=== PATIENT | male | born 1965 | race Caucasian/White ===

== ENCOUNTER → 2018-10-31 | Day surgery (SDC) | payer BC ==
[2018-10-30 09:23] VITALS: BMI 29.1
[~2018-10-31] MED LIST: LACTATED RINGERS 1,000 ML IV SCH; LIDOCAINE 1% 20 ML VIAL (10MG/ML) FOR IV START INTRADERMA PRN; PROPOFOL 10 MG/ML 20 ML VIAL IV ONE
[2018-10-31 10:00] VITALS: TEMP 97.3
--- NOTE | 2018-10-31 11:15 | P.PCN ---
Date of Procedure: 10/31/18 Procedure(s) Performed: Procedure: Total colonoscopy. Preoperative diagnosis: Screening for neoplasia. Postoperative diagnosis: Exam within normal limits. Preparation: HalfLytely prep. Sedation: Was provided by anesthesia. Brief clinical history: The patient is a 52 year old male who is scheduled for t his evaluation for screening for neoplasia age being his risk factor. No family history of colon cancer. He has no abdominal complaints, bleeding or anemia. This would be his first colonoscopy. Procedure: With the patient on his left lateral decubitus position and after informed consent and adequate sedation, the perianal area was inspected and it did not show any fissures or fistulas. There were no masses felt on digital rectal examination. The Olympus CFH 190L video colonoscope was then inserted in the rectum in the usual fashion and advanced to the cecum. The mucosa appeared healthy. No polyps or tumors were seen or any obvious diverticular disease or other pathology. I retroflexed the endoscope in the rectum before the endoscope was withdrawn. The patient tolerated the procedure well. Plan: The patient was reassured. He will follow up with you as planned and I recommended repeat exam in 10 years.
[2018-10-31 11:35] VITALS: BP 131/90; PULSE 69; RESP 18
== END ==
LOC: ORWHC2ENDO 09:24
DX: Z12.11 Encounter for screening for malignant neoplasm of colon (principal)
CPT/HCPCS: 45378; J2704

== ENCOUNTER 2022-08-31 15:30 | Emergency (ER) | payer BC ==
[2022-08-31 15:46] VITALS: RESP 18; TEMP 98
--- NOTE | 2022-08-31 16:23 | ED ---
General Adult HPI - General Chief complaint: Neuro Symptoms/Deficit Stated complaint: numbness in face Time Seen by Provider: 08/31/22 16:23 Source: patient, RN notes reviewed Mode of arrival: ambulatory Limitations: no limitations - History of Present Illness Initial comments: Patient is a 58-year-old male presenting with chief complaint of right-sided facial numbness ongoing for the last 3 days. Patient has full motion to the bilateral sides of the face. Patient was seen at an urgent care in [place] for the same complaint, they told him to report to the ER for any persistent symptoms or worsening of symptoms. No nausea, vomiting, dizziness, headache, vision changes, numbness or tingling to other portions of the body, weakness. No chest pain, difficulty breathing, palpitations. No recent injury or trauma. No neck pain. - Related Data Home Medications Medication Instructions Recorded Confirmed No Known Home Medications 10/30/18 10/31/18 Allergies Allergy/AdvReac Type Severity Reaction Status Date / Time Dogs Allergy Dyspnea Uncoded 08/31/22 15:46 Review of Systems ROS Statement: Those systems with pertinent positive or pertinent negative responses have been documented in the HPI. ROS Other: All systems not noted in ROS Statement are negative. Past Medical History Past Medical History: No Reported History History of Any Multi-Drug Resistant Organisms: None Reported Past Surgical History: Tonsillectomy Additional Past Surgical History / Comment(s): COLONOSCOPY Past Anesthesia/Blood Transfusion Reactions: No Reported Reaction Past Psychological History: No Psychological Hx Reported Smoking Status: Light tobacco smoker Past Alcohol Use History: Occasional Past Drug Use History: None Reported - Past Family History Mother Family Medical History: Cancer Father Family Medical History: Cancer General Exam - General Exam Comments Initial Comments: Visual Physical Exam Vital signs reviewed General: Well-appearing, nontoxic, no acute distress. Head: Normocephalic, atraumatic Eyes: PERRLA, EOMI ENT: Airway patent Chest: Nonlabored breathing Skin: No visual rash, normal skin tone Neuro: Alert and oriented 3 Musculoskeletal: No gross abnormalities Limitations: no limitations General appearance: alert, in no apparent distress Head exam: Present: atraumatic, normocephalic, normal inspection Eye exam: Present: normal appearance, PERRL, EOMI. Absent: scleral icterus, conjunctival injection, periorbital swelling Neck exam: Present: normal inspection, full ROM Respiratory exam: Present: normal lung sounds bilaterally. Absent: respiratory distress, wheezes, rales, rhonchi, stridor Cardiovascular Exam: Present: regular rate, normal rhythm, normal heart sounds. Absent: systolic murmur, diastolic murmur, rubs, gallop, clicks Neurological exam: Present: alert, oriented X3, CN II-XII intact Expanded Patient oriented to: Present: person, place, time Speech: Present: fluid speech Cranial nerves: EOM's Intact: Normal, Facial Sensation: Abnormal Right (Patient states that it is diminished but not completely numb, full facial motions noted) Eye Response: (4) open spontaneously Motor Response: (6) obeys commands Verbal Response: (5) oriented Callie Total: 15 Psychiatric exam: Present: normal affect, normal mood Skin exam: Present: warm, dry, intact, normal color. Absent: rash Course Vital Signs 08/31/22 08/31/22 15:43 18:56 Temperature 98.0 F Pulse Rate 85 80 Respiratory 18 18 Rate Blood Pressure 137/80 136/78 O2 Sat by Pulse 97 98 Oximetry EKG Findings - EKG Comments: EKG Findings:: Sinus rhythm ventricular rate 81. [place] interval 146. QRS 116. QT 363. QTC 400. Incomplete right bundle branch block. Normal axis. Medical Decision Making - Medical Decision Making Was pt. sent in by a medical professional or institution (JESSICA Yañez, DINING CAR WAITER/WAITRESS, urgent care, hospital, or assisted...) When possible be specific @ -No Did you speak to anyone other than the patient for history (EMS, parent, family, police, friend...)? What history was obtained from this source @ -No Did you review nursing and triage notes (agree or disagree)? Why? @ -I reviewed and agree with nursing and triage notes Were old charts reviewed (outside hosp., previous admission, EMS record, old EKG, old radiological studies, urgent care reports/EKG's, assisted records)? Report findings @ -No old charts were reviewed Differential Diagnosis (chest pain, altered mental status, abdominal pain women, abdominal pain men, vaginal bleeding, weakness, fever, dyspnea, syncope, headache, dizziness, GI bleed, back pain, seizure, CVA, palpatations, mental health, musculoskeletal)? @ -Differential CVA Steward's palsy, Ischemic stroke, hemorrhagic stroke, brain tumor, atypical migraine, Wernicke's encephalopathy, seizure, multiple sclerosis, meningitis, encephalitis, hypoglycemia, Guillain-Wright, electrolytes disturbance, myasthenia gravis.... This is not meant to be an all-inclusive list EKG interpreted by me (3pts min.). @ -As above X-rays interpreted by me (1pt min.). @ -None done CT interpreted by me (1pt min.). @ -CT shows no acute intracranial process U/S interpreted by me (1pt. min.). @ -None done What testing was considered but not performed or refused? (CT, X-rays, U/S, labs)? Why? @ -None What meds were considered but not given or refused? Why? @ -None Did you discuss the management of the patient with other professionals (professionals i.e. , PA, DINING CAR WAITER/WAITRESS, lab, RT, psych nurse, social sciences instructor, winch stripper, teacher, licensed loan officer, major case detective)? Give summary @ -No Was smoking cessation discussed for >3mins.? @ -No Was critical care preformed (if so, how long)? @ -No Were there social determinants of health that impacted care today? How? (Homelessness, low income, unemployed, alcoholism, drug addiction, tra nsportation, low edu. Level, literacy, decrease access to med. care, fpc, rehab)? @ -No Was there de-escalation of care discussed even if they declined (Discuss DNR or withdrawal of care, Hospice)? DNR status @ -No What co-morbidities impacted this encounter? (DM, HTN, Smoking, COPD, CAD, Cancer, CVA, ARF, Chemo, Hep., AIDS, mental health diagnosis, sleep apnea, morbid obesity)? @ -None Was patient admitted / discharged? Hospital course, mention meds given and route, prescriptions, significant lab abnormalities, going to OR and other pertinent info. @ -Patient is a 56-year-old male presenting with chief complaint of 3 days of right-sided facial numbness. Patient has full facial movement. On physical examination patient states that he is diminished sensation to the right side of the face, but not totally absent. Remainder of physical examination is un remarkable. CT shows no acute process. Lab work is essentially unremarkable. EKG shows no acute process. Patient is educated on these findings. I educated patient on the possibility of Steward's palsy. I encouraged him to follow up with his PCP. Follow-up with PCP. Report back to ER with any new or worsening symptoms. Discussed return parameters and answered all questions. Patient conveyed verbal understanding and agreed to the plan. I discussed this case in detail with my attending Dr. Barnes Undiagnosed new problem with uncertain prognosis? @ -No Drug Therapy requiring intensive monitoring for toxicity (Heparin, Nitro, Insulin, Cardizem)? @ -No Were any procedures done? @ -No Diagnosis/symptom? @ -Facial numbness Acute, or Chronic, or Acute on Chronic? @ -Acute Uncomplicated (without systemic symptoms) or Complicated (systemic symptoms)? @ -Uncomplicated Side effects of treatment? @ -No Exacerbation, Progression, or Severe Exacerbation? @ -No Poses a threat to life or bodily function? How? (Chest pain, [place], [place], pneumonia, PE, COPD, DKA, ARF, appy, cholecystitis, CVA, Diverticulitis, Homicidal, Suicidal, threat to staff... and all critical care pts) @ -No - Lab Data Result diagrams: 08/31/22 17:35 08/31/22 17:35 Lab Results 08/31/22 08/31/22 08/31/22 Range/Units 17:35 17:35 17:35 WBC 5.0 (3.8-10.6) k/uL RBC 4.85 (4.30-5.90) m/uL Hgb 14.6 (13.0-17.5) gm/dL Hct 42.2 (39.0-53.0) % MCV 87.0 (80.0-100.0) fL MCH 30.1 (25.0-35.0) pg MCHC 34.6 (31.0-37.0) g/dL RDW 13.1 (11.5-15.5) % Plt Count 222 (150-450) k/uL MPV 7.1 Neutrophils % 52 % Lymphocytes % 31 % Monocytes % 7 % Eosinophils % 6 % Basophils % 1 % Neutrophils # 2.6 (1.3-7.7) k/uL Lymphocytes # 1.5 (1.0-4.8) k/uL Monocytes # 0.4 (0-1.0) k/uL Eosinophils # 0.3 (0-0.7) k/uL Basophils # 0.1 (0-0.2) k/uL PT 10.3 (9.0-12.0) sec INR 1.0 (<1.2) APTT 24.2 (22.0-30.0) sec Sodium 139 (137-145) mmol/L Potassium 4.3 (3.5-5.1) mmol/L Chloride 106 (98-107) mmol/L Carbon Dioxide 24 (22-30) mmol/L Anion Gap 9 mmol/L BUN 21 H (9-20) mg/dL Creatinine 0.83 (0.66-1.25) mg/dL Est GFR (CKD-EPI)AfAm >90 (>60 ml/min/1.73 sqM) Est GFR (CKD-EPI)NonAf >90 (>60 ml/min/1.73 sqM) Glucose 97 (74-99) mg/dL Calcium 9.0 (8.4-10.2) mg/dL Total Bilirubin 0.4 (0.2-1.3) mg/dL AST 24 (17-59) U/L ALT 32 (4-49) U/L Alkaline Phosphatase 55 (38-126) U/L Creatine Kinase 99 (55-170) U/L Troponin I (0.000-0.034) ng/mL Total Protein 7.3 (6.3-8.2) g/dL Albumin 4.1 (3.5-5.0) g/dL 08/31/22 Range/Units 17:35 WBC (3.8-10.6) k/uL RBC (4.30-5.90) m/uL Hgb (13.0-17.5) gm/dL Hct (39.0-53.0) % MCV (80.0-100.0) fL MCH (25.0-35.0) pg MCHC (31.0-37.0) g/dL RDW (11.5-15.5) % Plt Count (150-450) k/uL MPV Neutrophils % % Lymphocytes % % Monocytes % % Eosinophils % % Basophils % % Neutrophils # (1.3-7.7) k/uL Lymphocytes # (1.0-4.8) k/uL Monocytes # (0-1.0) k/uL Eosinophils # (0-0.7) k/uL Basophils # (0-0.2) k/uL PT (9.0-12.0) sec INR (<1.2) APTT (22.0-30.0) sec Sodium (137-145) mmol/L Potassium (3.5-5.1) mmol/L Chloride (98-107) mmol/L Carbon Dioxide (22-30) mmol/L Anion Gap mmol/L BUN (9-20) mg/dL Creatinine (0.66-1.25) mg/dL Est GFR (CKD-EPI)AfAm (>60 ml/min/1.73 sqM) Est GFR (CKD-EPI)NonAf (>60 ml/min/1.73 sqM) Glucose (74-99) mg/dL Calcium (8.4-10.2) mg/dL Total Bilirubin (0.2-1.3) mg/dL AST (17-59) U/L ALT (4-49) U/L Alkaline Phosphatase (38-126) U/L Creatine Kinase (55-170) U/L Troponin I <0.012 (0.000-0.034) ng/mL Total Protein (6.3-8.2) g/dL Albumin (3.5-5.0) g/dL Disposition Clinical Impression: Facial numbness Disposition: HOME SELF-CARE Condition: Good Instructions (If sedation given, give patient instructions): Steward Palsy (ED), Paresthesia (ED) Additional Instructions: Follow-up with PCP. Report back to ER with any new or worsening symptoms. Is patient prescribed a controlled substance at d/c from ED?: No Referrals: [facility],Clinic [REFERRING] - 1-2 days Time of Disposition: 19:10
--- NOTE | 2022-08-31 17:08 | CT ---
EXAMINATION TYPE: CT brain wo con DATE OF EXAM: 08/31/2022 HISTORY: Right sided facial numbness. CT DLP: 1153.4 mGycm. Automated Exposure Control for Dose Reduction was Utilized. TECHNIQUE: CT scan of the head is performed without contrast. COMPARISON: None. FINDINGS: There is no acute intracranial hemorrhage or midline shift identified. Ventricles and sul ci within normal limits in size for patient's age. Thompson-white matter differentiation is maintained. Nasal septum deviated to left of midline. The globes are intact and the visualized sinuses are clear. IMPRESSION: No acute intracranial hemorrhage or midline shift. Unremarkable study.
[2022-08-31 17:57] LABS: Basophils # (A) 0.1 k/uL (0-0.2); Basophils % (A) 1 %; Eosinophils # (A) 0.3 k/uL (0-0.7); Eosinophils % (A) 6 %; HCT 42.2 % (39.0-53.0); HGB 14.6 gm/dL (13.0-17.5); Lymphocytes # (A) 1.5 k/uL (1.0-4.8); Lymphocytes % (A) 31 %; MCH 30.1 pg (25.0-35.0); MCHC 34.6 g/dL (31.0-37.0); Mean Platelet Volume 7.1; Monocytes # (A) 0.4 k/uL (0-1.0); Monocytes % (A) 7 %; Neutrophils # (A) 2.6 k/uL (1.3-7.7); Neutrophils % (A) 52 %; Platelet Count 222 k/uL (150-450); RBC 4.85 m/uL (4.30-5.90); RDW 13.1 % (11.5-15.5)
[2022-08-31 18:09] LABS: Partial Thromboplastin Time 24.2 sec (22.0-30.0); Prothrombin Time 10.3 sec (9.0-12.0)
[2022-08-31 18:26] LABS: ALT 32 U/L (4-49); AST 24 U/L (17-59); African American GFR (CKD) >90 (>60 ml/min/1.73 sqM); Albumin 4.1 g/dL (3.5-5.0); Alkaline Phosphatase 55 U/L (38-126); Anion Gap 9 mmol/L; Blood Urea Nitrogen 21 mg/dL (9-20); Carbon Dioxide 24 mmol/L (22-30); Chloride 106 mmol/L (98-107); Creatine Kinase 99 U/L (55-170); Glucose 97 mg/dL (74-99); Non-African American GFR(CKD) >90 (>60 ml/min/1.73 sqM); Potassium 4.3 mmol/L (3.5-5.1); Sodium 139 mmol/L (137-145); Total Bilirubin 0.4 mg/dL (0.2-1.3); Total Protein 7.3 g/dL (6.3-8.2)
[2022-08-31 18:58] VITALS: BP 136/78; PULSE 80
== END 2022-08-31 19:37 | disposition home or self-care (01) ==
LOC: EC 15:30
DX: R20.0 Anesthesia of skin (principal); F17.200 Nicotine dependence, unspecified, uncomplicated; Z91.09 Other allergy status, other than to drugs and biological substances
CPT/HCPCS: 36415; 70450; 80053; 82550; 84484; 85025; 85610; 85730; 93005; 99284

== ENCOUNTER → 2022-09-26 | Outpatient (CLI) | payer BC ==
[2022-09-26 18:24] LABS: Appearance,CSF Clear; CSF Tube Number 4; Nucleated Cells, CSF 1 u/L (0-5); Red Blood Cell,CSF 0 u/L (0-10)
[2022-09-26 18:51] LABS: Total Protein,CSF 59 mg/dL (12-60)
[2022-09-27 12:23] LABS: IgG - CSF 3.7 mg/dL (0.0 - 3.4); IgG Synthesis Rate 0.53 mg/day (0.00 - 3.00); IgG/Albumin Index (CSF) 0.62 (0.00 - 0.77)
== END | disposition home or self-care (01) ==
LOC: LABWHC1 08:18
PROVIDERS: ATTEND Psychiatry & Neurology Neurology
DX: R20.8 Other disturbances of skin sensation (principal); R90.0 Intracranial space-occupying lesion found on diagnostic imaging of central nervous system
CPT/HCPCS: 36415; 82040; 82042; 82784; 83916; 84157; 87529; 89050

== ENCOUNTER 2023-09-22 01:21 | Observation (INO) | payer BC ==
[2023-09-22] MEDS: MECLIZINE 12.5 MG TAB PO STA (01:48)
[2023-09-22] MEDS: ONDANSETRON 4 MG/2 ML VIAL IVP STA (01:48)
[2023-09-22] MEDS: SODIUM CHLORIDE 0.9% 1,000 ML IV STA (01:50)
[2023-09-22 02:01] LABS: Basophils % (A) 1 %; Eosinophils # (A) 0.2 k/uL (0-0.7); Eosinophils % (A) 5 %; HCT 46.1 % (39.0-53.0); HGB 15.2 gm/dL (13.0-17.5); Lymphocytes # (A) 0.4 k/uL (1.0-4.8); Lymphocytes % (A) 10 %; MCH 29.2 pg (25.0-35.0); MCHC 32.9 g/dL (31.0-37.0); MCV 88.7 fL (80.0-100.0); Mean Platelet Volume 7.3; Monocytes # (A) 0.4 k/uL (0-1.0); Monocytes % (A) 10 %; Neutrophils % (A) 72 %; Platelet Count 244 k/uL (150-450); RDW 13.3 % (11.5-15.5); WBC 4.2 k/uL (3.8-10.6)
--- NOTE | 2023-09-22 02:21 | ED ---
Dizziness HPI - General Chief Complaint: Dizziness Stated Complaint: Dizziness, vomiting, sweating Time Seen by Provider: 09/22/23 01:30 Source: patient Mode of arrival: wheelchair Limitations: no limitations - History of Present Illness Initial Comments: 57-year-old male with history of MS presenting with chief complaint of dizziness. Patient had sudden onset dizziness tonight. He states that he feels like the room is spinning around him. He admits to sweating nausea and vomiting as well. No fevers. No URI-like symptoms. No chest pain or difficulty breathing. No abdominal pain. No recent injury or trauma. No lower extremity swelling - Related Data Home Medications Medication Instructions Recorded Confirmed Gabapentin 300 mg PO TID 09/22/23 09/22/23 Losartan [Cozaar] 50 mg PO DAILY@1800 09/22/23 09/22/23 Ozanimod Hydrochloride [Zeposia] 0.92 mg PO DAILY@0700 09/22/23 09/22/23 tiZANidine [Zanaflex] 4 mg PO BID PRN 09/22/23 09/22/23 Previous Rx's Medication Instructions Recorded Meclizine [Antivert] 25 mg PO TID PRN #60 tab 09/24/23 Allergies Allergy/AdvReac Type Severity Reaction Status Date / Time dog dander Allergy Dyspnea Verified 09/22/23 13:03 Dogs Allergy Dyspnea Uncoded 09/22/23 13:03 Review of Systems ROS Statement: Those systems with pertinent positive or pertinent negative responses have been documented in the HPI. ROS Other: All systems not noted in ROS Statement are negative. Past Medical History Past Medical History: No Reported History Additional Past Medical History / Comment(s): MS History of Any Multi-Drug Resistant Organisms: None Reported Past Surgical History: Tonsillectomy Additional Past Surgical History / Comment(s): COLONOSCOPY Past Anesthesia/Blood Transfusion Reactions: No Reported Reaction Past Psychological History: No Psychological Hx Reported Smoking Status: Former smoker Past Alcohol Use History: Occasional Past Drug Use History: None Reported - Past Family History Mother Family Medical History: Cancer Father Family Medical History: Cancer General Exam Limitations: no limitations General appearance: alert, in no apparent distress Head exam: Present: atraumatic, normocephalic Eye exam: Present: normal appearance, PERRL, EOMI Pupils: Present: normal accommodation Neck exam: Present: normal inspection. Absent: meningismus Respiratory exam: Present: normal lung sounds bilaterally. Absent: respiratory distress, wheezes, rales, rhonchi, stridor Cardiovascular Exam: Present: regular rate, normal rhythm, normal heart sounds. Absent: systolic murmur, diastolic murmur, rubs, gallop, clicks Extremities exam: Present: normal inspection Neurological exam: Present: alert, oriented X3 Expanded Patient oriented to: Present: person, place, time Speech: Present: fluid speech Motor strength exam: RUE: 5, LUE: 5, RLE: 5, LLE: 5 Eye Response: (4) open spontaneously Motor Response: (6) obeys commands Verbal Response: (5) oriented Callie Total: 15 Psychiatric exam: Present: normal affect, normal mood Skin exam: Present: diaphoretic Course Vital Signs 09/22/23 09/22/23 09/22/23 01:24 02:00 03:00 Temperature 97.4 F L Pulse Rate 79 68 91 Respiratory 18 16 18 Rate Blood Pressure 166/87 145/98 155/91 O2 Sat by Pulse 98 96 97 Oximetry 09/22/23 09/22/23 09/22/23 05:00 06:00 07:00 Temperature Pulse Rate 71 69 70 Respiratory 16 17 18 Rate Blood Pressure 135/73 133/95 137/83 O2 Sat by Pulse 97 96 96 Oximetry Medical Decision Making - Medical Decision Making On reevaluation the patient reported continued vertigo that had not improved since arrival. He will be admitted for further evaluation. Was pt. sent in by a medical professional or institution (, PA, APPLICATIONS SUPPORT ENGINEER, urgent c are, hospital, or intermediate...) When possible be specific @ -No Did you speak to anyone other than the patient for history (EMS, parent, family, police, friend...)? What history was obtained from this source @ -No Did you review nursing and triage notes (agree or disagree)? Why? @ -I reviewed and agree with nursing and triage notes Were old charts reviewed (outside hosp., previous admission, EMS record, old EKG, old radiological studies, urgent care reports/EKG's, intermediate records)? Report findings @ -No old charts were reviewed Differential Diagnosis (chest pain, altered mental status, abdominal pain women, abdominal pain men, vaginal bleeding, weakness, fever, dyspnea, syncope, headache, dizziness, GI bleed, back pain, seizure, CVA, palpatations, mental health, musculoskeletal)? @ -MDM Differential Dizziness: Benign paroxysmal positional Vertigo, Menieres disease, otitis media, acoustic neuroma, vertebrobasilar insufficiency, cerebellar stroke, encephalitis, hypovolemic, arrhythmia, coronary artery syndrome, anemia this is not meant to be an all-inclusive list EKG interpreted by me (3pts min.). @ -EKG shows sinus rhythm ventricular rate 72. [place] interval 155. QRS 117. QT 394. QTc 418. X-rays interpreted by me (1pt min.). @ -None done CT interpreted by me (1pt min.). @ -CT shows no acute abnormality U/S interpreted by me (1pt. min.). @ -None done What testing was considered but not performed or refused? (CT, X-rays, U/S, labs)? Why? @ -None What meds were considered but not given or refused? Why? @ -None Did you discuss the management of the patient with other professionals (professionals i.e. , PA, APPLICATIONS SUPPORT ENGINEER, lab, RT, psych nurse, addiction social worker, health care attorney, teacher, probation and parole officer, nurse case management)? Give summary @ -My attending spoke with the [facility] provider on-call who accepted admission Was smoking cessation discussed for >3mins.? @ -No Was critical care preformed (if so, how long)? @ -No Were there social determinants of health that impacted care today? How? (Homelessness, low income, unemployed, alcoholism, drug addiction, transportation, low edu. Level, literacy, decrease access to med. care, correction, rehab)? @ -No Was there de-escalation of care discussed even if they declined (Discuss DNR or withdrawal of care, Hospice)? DNR status @ -No What co-morbidities impacted this encounter? (DM, HTN, Smoking, COPD, CAD, Cancer, CVA, ARF, Chemo, Hep., AIDS, mental health diagnosis, sleep apnea, morbid obesity)? @ -None Was patient admitted / discharged? Hospital course, mention meds given and route, prescriptions, significant lab abnormalities, going to OR and other pertinent info. @ -57-year-old male presenting with chief complaint of dizziness. No focal neurological deficits. Lab studies require no action. Negative brain CT. EKG shows sinus rhythm. On reassessment after meclizine Zofran Benadryl and Reglan the patient is still experiencing dizziness. He will be admitted for vertigo. Scopolamine patch is ordered. Patient is agreeable with this plan. I discussed this case with my attending Dr. Bustos Undiagnosed new problem with uncertain prognosis? @ -No Drug Therapy requiring intensive monitoring for toxicity (Heparin, Nitro, Insulin, Cardizem)? @ -No Were any procedures done? @ -No Diagnosis/symptom? @ -Vertigo Acute, or Chronic, or Acute on Chronic? @ -Acute Uncomplicated (without systemic symptoms) or Complicated (systemic symptoms)? @ -Complicated Side effects of treatment? @ -No Exacerbation, Progression, or Severe Exacerbation? @ -No Poses a threat to life or bodily function? How? (Chest pain, [place], [place], pneumonia, PE, COPD, DKA, ARF, appy, cholecystitis, CVA, Diverticulitis, Homicidal, S uicidal, threat to staff... and all critical care pts) @ -Yes - Lab Data Result diagrams: 09/24/23 06:24 09/24/23 06:24 Lab Results 09/22/23 09/22/23 09/22/23 Range/Units 01:04 01:45 01:45 WBC 4.2 (3.8-10.6) k/uL RBC 5.20 (4.30-5.90) m/uL Hgb 15.2 (13.0-17.5) gm/dL Hct 46.1 (39.0-53.0) % MCV 88.7 (80.0-100.0) fL MCH 29.2 (25.0-35.0) pg MCHC 32.9 (31.0-37.0) g/dL RDW 13.3 (11.5-15.5) % Plt Count 244 (150-450) k/uL MPV 7.3 Neutrophils % 72 % Lymphocytes % 10 % Monocytes % 10 % Eosinophils % 5 % Basophils % 1 % Neutrophils # 3.0 (1.3-7.7) k/uL Lymphocytes # 0.4 L (1.0-4.8) k/uL Monocytes # 0.4 (0-1.0) k/uL Eosinophils # 0.2 (0-0.7) k/uL Basophils # 0.0 (0-0.2) k/uL Sodium 138 (137-145) mmol/L Potassium 4.3 (3.5-5.1) mmol/L Chloride 108 H (98-107) mmol/L Carbon Dioxide 23 (22-30) mmol/L Anion Gap 7 mmol/L BUN 22 H (9-20) mg/dL Creatinine 0.84 (0.66-1.25) mg/dL Est GFR (CKD-EPI)AfAm >90 (>60 ml/min/1.73 sqM) Est GFR (CKD-EPI)NonAf >90 (>60 ml/min/1.73 sqM) Glucose 132 H (74-99) mg/dL Plasma Lactic Acid Aakash 1.0 (0.7-2.0) mmol/L Calcium 8.8 (8.4-10.2) mg/dL Total Bilirubin 0.5 (0.2-1.3) mg/dL AST 26 (17-59) U/L ALT 27 (4-49) U/L Alkaline Phosphatase 61 (38-126) U/L Troponin I (0.000-0.034) ng/mL Total Protein 6.6 (6.3-8.2) g/dL Albumin 3.8 (3.5-5.0) g/dL 09/22/23 Range/Units 01:45 WBC (3.8-10.6) k/uL RBC (4.30-5.90) m/uL Hgb (13.0-17.5) gm/dL Hct (39.0-53.0) % MCV (80.0-100.0) fL MCH (25.0-35.0) pg MCHC (31.0-37.0) g/dL RDW (11.5-15.5) % Plt Count (150-450) k/uL MPV Neutrophils % % Lymphocytes % % Monocytes % % Eosinophils % % Basophils % % Neutrophils # (1.3-7.7) k/uL Lymphocytes # (1.0-4.8) k/uL Monocytes # (0-1.0) k/uL Eosinophils # (0-0.7) k/uL Basophils # (0-0.2) k/uL Sodium (137-145) mmol/L Potassium (3.5-5.1) mmol/L Chloride (98-107) mmol/L Carbon Dioxide (22-30) mmol/L Anion Gap mmol/L BUN (9-20) mg/dL Creatinine (0.66-1.25) mg/dL Est GFR (CKD-EPI)AfAm (>60 ml/min/1.73 sqM) Est GFR (CKD-EPI)NonAf (>60 ml/min/1.73 sqM) Glucose (74-99) mg/dL Plasma Lactic Acid Aakash (0.7-2.0) mmol/L Calcium (8.4-10.2) mg/dL Total Bilirubin (0.2-1.3) mg/dL AST (17-59) U/L ALT (4-49) U/L Alkaline Phosphatase (38-126) U/L Troponin I <0.012 (0.000-0.034) ng/mL Total Protein (6.3-8.2) g/dL Albumin (3.5-5.0) g/dL Disposition Clinical Impression: Vertigo Disposition: ADMITTED IP TO THIS HOSP Condition: Fair Time of Disposition: 04:47
[2023-09-22 02:48] LABS: ALT 27 U/L (4-49); AST 26 U/L (17-59); African American GFR (CKD) >90 (>60 ml/min/1.73 sqM); Albumin 3.8 g/dL (3.5-5.0); Alkaline Phosphatase 61 U/L (38-126); Anion Gap 7 mmol/L; Blood Urea Nitrogen 22 mg/dL (9-20); Calcium 8.8 mg/dL (8.4-10.2); Carbon Dioxide 23 mmol/L (22-30); Chloride 108 mmol/L (98-107); Glucose 132 mg/dL (74-99); Non-African American GFR(CKD) >90 (>60 ml/min/1.73 sqM); Potassium 4.3 mmol/L (3.5-5.1); Sodium 138 mmol/L (137-145); Total Bilirubin 0.5 mg/dL (0.2-1.3); Total Protein 6.6 g/dL (6.3-8.2)
--- NOTE | 2023-09-22 03:39 | CT ---
EXAM: CT Head Without Intravenous Contrast CLINICAL HISTORY: Dizziness TECHNIQUE: Axial computed tomography images of the head/brain without intravenous contrast. CTDI is 49.2 mGy and DLP is 1125.4 mGy-cm. This CT exam was performed using one or more of the following dose reduction techniques: automated exposure control, adjustment of the mA and/or kV according to patient size, and/or use of iterative reconstruction technique. COMPARISON: 08/31/2022. FINDINGS: Brain: No acute stroke. No hemorrhage. No abnormal extra-axial fluid collection. No significant white matter disease. Ventricles: No hydrocephalus. No midline shift. Bones/joints: Unremarkable. No acute fracture. Soft tissues: Unremarkable. Sinuses: Unremarkable as visualized. No acute sinusitis. IMPRESSION: No acute abnormality.
[2023-09-22] MEDS: METOCLOPRAMIDE 5 MG/ML 2 ML VIAL IVP STA (04:24)
[2023-09-22] MEDS: diphenhydrAMINE 50 MG/ML 1 ML VIAL IVP STA (04:27)
[2023-09-22] MEDS ORDERED: NALOXONE 0.4 MG/ML 1 ML VIAL IV PRN (04:47)
[2023-09-22] MEDS ORDERED: ONDANSETRON 4 MG/2 ML VIAL IVP PRN (04:47)
[2023-09-22] MEDS: SCOPOLAMINE 1 MG/72 HR PATCH TRANSDERM STA (05:51)
[2023-09-22] MEDS: MECLIZINE 25 MG TAB PO PRN (12:39)
[2023-09-22] MEDS ORDERED: tiZANidine 4 MG TAB PO PRN (13:17)
[2023-09-22] MEDS: MECLIZINE 25 MG TAB PO SCH (14:26)
[2023-09-22] MEDS: GABAPENTIN 300 MG CAP PO SCH (16:15)
--- NOTE | 2023-09-22 16:31 | P.CNNES ---
History of Present Illness Consult date: 09/22/23 Reason for Consult: Vertigo History of Present Illness: The patient is a 57-year-old male who was seen in neurologic consultation on September 22, 2023, in collaboration with Kimberly Arguelles, via teleneurology. The patient reports that he had sudden onset of a dizzy sensation. He describes his dizziness as the room spinning. He reports associated nausea and vomiting. He also reports severe diaphoresis. Patient denies changes in hearing or tinnitus. He denies recent viral illness. The patient does report a history of similar symptoms occurring in January 2023. He believes those symptoms lasted only for about 48 hours. Workup in the emergency department included a CT scan of the brain. There is no reported evidence of acute hemorrhage or infarct. The patient does have a history of multiple sclerosis which was diagnosed 1 to 2 years ago. He does see a neurologist regularly. The patient does feel as if there is some improvement in the spinning sensation, since he was brought up to his room. Past Medical History Past Medical History: No Reported History Additional Past Medical History / Comment(s): MS History of Any Multi-Drug Resistant Organisms: None Reported Past Surgical History: Tonsillectomy Additional Past Surgical History / Comment(s): COLONOSCOPY Past Anesthesia/Blood Transfusion Reactions: No Reported Reaction Past Psychological History: No Psychological Hx Reported Smoking Status: Former smoker Past Alcohol Use History: Occasional Past Drug Use History: None Reported - Past Family History Mother Family Medical History: Cancer Father Family Medical History: Cancer Medications and Allergies Home Medications Medication Instructions Recorded Confirmed Type Gabapentin 300 mg PO TID 09/22/23 09/22/23 History Losartan [Cozaar] 50 mg PO DAILY@1800 09/22/23 09/22/23 History Ozanimod Hydrochloride [Zeposia] 0.92 mg PO DAILY@0700 09/22/23 09/22/23 History tiZANidine [Zanaflex] 4 mg PO BID PRN 09/22/23 09/22/23 History Allergies Allergy/AdvReac Type Severity Reaction Status Date / Time dog dander Allergy Dyspnea Verified 09/22/23 13:03 Dogs Allergy Dyspnea Uncoded 09/22/23 13:03 Physical Examination - Vital Signs Vital Signs: Vital Signs Temp Pulse Pulse Resp BP BP Pulse Ox 09/22/23 08:00 97.8 F 78 18 140/84 96 09/22/23 07:00 70 18 137/83 96 09/22/23 06:00 69 17 133/95 96 09/22/23 05:00 71 16 135/73 97 09/22/23 03:00 91 18 155/91 97 09/22/23 02:00 68 16 145/98 96 09/22/23 01:24 97.4 F L 79 18 166/87 98 Intake and Output 09/21/23 09/22/23 09/22/23 22:59 06:59 14:59 Other: Weight 99.79 kg General: Patient is awake and alert. He is in no acute distress. He is well- nourished. HEENT: Head is atraumatic, normocephalic. Fundus not visualized. There is no scleral icterus. Mucous membranes are moist. Neck: Supple without carotid bruits Heart: Regular rate and rhythm without murmur Lungs: Essentially clear to auscultation. Extremities: Without edema Neurological examination Mental status: The patient awake, alert and oriented x 3. Speech is clear. The re is no dysarthria or aphasia. Cranial nerves: Pupils are equal at 3 mm and reactive to light. Visual sarabia are full to confrontation. Extraocular movements are intact. There is mild nystagmus upon repositioning of the eyes from the right to left. Facial sensation is intact. There is no facial asymmetry. Hearing is grossly intact. Uvula and palate are midline. Shoulder shrug is symmetric. Tongue protrudes midline. Motor: Strength is 5/5 in the bilateral upper extremities. Right lower extremity strength 5/5. Left lower extremity strength 4/5. Sensation: Intact to light touch throughout. There is no extinction with double simultaneous stimulation. Deep tendon reflexes: 2+/4+ throughout, with the exception of the left biceps reflex at 3+/4+. Plantar responses are flexor bilaterally. Coordination: [id number], haeh-ik-vphd and rapid alternating movements are intact. Gait: Not assessed Results - Laboratory Findings CBC and BMP: 09/22/23 01:45 09/22/23 01:04 Abnormal Lab Findings: Abnormal Labs 09/22/23 09/22/23 01:04 01:45 Lymphocytes # 0.4 L Chloride 108 H BUN 22 H Glucose 132 H Assessment and Plan Assessment: 1. Recurrent benign paroxysmal positional vertigo, unlikely exacerbation of multiple sclerosis 2. History of multiple sclerosis Plan: 1. Agree with meclizine or scopolamine patch 2. Physical therapy consultation regarding Kristine maneuver Time with Patient: Greater than 30 (58 minutes were spent caring for this patient today including, obtaining history, examining the patient, reviewing imaging, chart documentation, labs, placing orders and creating this note)
[2023-09-22] MEDS: LOSARTAN 50 MG TAB PO SCH (17:54)
[2023-09-22] MEDS ORDERED: [UNRECOGNIZED DRUG - OTHER] PO SCH (18:15)
--- NOTE | 2023-09-22 23:39 | HP ---
HISTORY AND PHYSICAL CHIEF COMPLAINT: Dizziness, vomiting, and sweating. HISTORY OF PRESENT ILLNESS: This is a 57-year-old gentleman with past history of MS, was admitted with complaints of dizziness. Neurology evaluated the patient . There is no history of any fever or rigors, no history of headache or loss of consciousness. PAST MEDICAL HISTORY: History of MS tonsillectomy. Rest of the history and chart is also reviewed. HOME MEDICATIONS: None. ALLERGIES: Dogs. FAMILY HISTORY: History of cancer in the family. SOCIAL HISTORY: Previous history of smoking. REVIEW OF SYSTEMS: A 14-point review is negative except . PHYSICAL EXAMINATION: VITAL SIGNS: Pulse is 99, blood pressure 130/90, respiration 16. CHEST: Clear to auscultation. ABDOMEN: Soft. NERVOUS SYSTEM: Minimal nystagmus. LEGS: No edema, no swelling. NEUROLOGIC: No focal deficits. SKIN: No ulcer, rash, bleeding. LABORATORY DATA: Reviewed. ASSESSMENT: 1. Vertigo, possible benign positional vertigo. 2. History of MS. 3. History of colonoscopy. RECOMMENDATIONS AND DISCUSSION: This 57-year-old gentleman presented with multiple medical issues, we will monitor the patient closely. Continue the current management, continue symptomatic treatment. Otherwise, I would recommend Antivert and closely monitor. Repeat labs. Neurology consultation. Guarded prognosis. Further recommendations to follow, see orders for details. MMODL / IJN: [id number] / MTDD
[2023-09-23] MEDS: [UNRECOGNIZED DRUG - OTHER] PO SCH (05:55)
[2023-09-23] MEDS ORDERED: [UNRECOGNIZED DRUG - OTHER] PO SCH (07:00)
[2023-09-23 08:22] LABS: Basophils % (A) 1 %; Eosinophils # (A) 0.2 k/uL (0-0.7); Eosinophils % (A) 4 %; HCT 45.7 % (39.0-53.0); HGB 15.6 gm/dL (13.0-17.5); Lymphocytes # (A) 0.3 k/uL (1.0-4.8); Lymphocytes % (A) 8 %; MCH 30.2 pg (25.0-35.0); MCHC 34.1 g/dL (31.0-37.0); MCV 88.8 fL (80.0-100.0); Mean Platelet Volume 7.7; Monocytes # (A) 0.4 k/uL (0-1.0); Monocytes % (A) 10 %; Neutrophils # (A) 2.9 k/uL (1.3-7.7); Neutrophils % (A) 76 %; Platelet Count 256 k/uL (150-450); RBC 5.14 m/uL (4.30-5.90); RDW 13.6 % (11.5-15.5); WBC 3.9 k/uL (3.8-10.6)
[2023-09-23 08:51] LABS: African American GFR (CKD) >90 (>60 ml/min/1.73 sqM); Anion Gap 8 mmol/L; Blood Urea Nitrogen 21 mg/dL (9-20); Calcium 8.6 mg/dL (8.4-10.2); Carbon Dioxide 22 mmol/L (22-30); Chloride 108 mmol/L (98-107); Glucose 110 mg/dL (74-99); Non-African American GFR(CKD) >90 (>60 ml/min/1.73 sqM); Potassium 4.3 mmol/L (3.5-5.1); Sodium 138 mmol/L (137-145)
--- NOTE | 2023-09-23 13:04 | P.PN ---
Subjective Progress Note Date: 09/23/23 The patient is a 57-year-old male who is seen in neurologic follow-up on September 23, 2023, in collaboration with Kimberly Arguelles, via teleneurology The patient reports continuing to feel dizzy. He notices with head movements, the spinning continues. He is able to stand however reports that he must immed iately hold onto something. Unfortunately, he was not seen by physical therapy for Kristine maneuver. It appears the primary team ordered an MRI of the brain. This will be done tomorrow. Objective - Vital Signs Vital signs: Vital Signs Temp 97.8 F 09/23/23 07:00 Pulse 67 09/23/23 08:00 Resp 16 09/23/23 08:00 BP 116/72 09/23/23 07:00 Pulse Ox 94 L 09/23/23 07:00 FiO2 Intake & Output 09/22/23 09/23/23 09/23/23 18:59 06:59 18:59 Weight 99.79 kg Other: # Voids 2 1 - Exam General: Patient is seated in the bed. He is well-nourished. He is in no acute distress. HEENT: Head is atraumatic, normocephalic. Fundus not visualized. There is no scleral icterus. Mucous membranes are moist. Neurological examination Mental status: The patient awake, alert and oriented x 3. Cranial nerves: 2-12 grossly intact Coordination: [id number]-tm-mwfg and rapid alternating movements are intact. There is no ataxia or dysmetria. - Labs CBC & Chem 7: 09/23/23 06:58 09/23/23 06:58 Labs: Abnormal Lab Results - Last 24 Hours (Table) 09/23/23 09/23/23 Range/Units 06:58 06:58 Lymphocytes # 0.3 L (1.0-4.8) k/uL Chloride 108 H (98-107) mmol/L BUN 21 H (9-20) mg/dL Glucose 110 H (74-99) mg/dL Assessment and Plan Assessment: 1. Recurrent benign paroxysmal positional vertigo, unlikely exacerbation of multiple sclerosis, unlikely cerebellar infarct 2. History of multiple sclerosis Plan: 1. Agree with meclizine or scopolamine patch 2. Physical therapy consultation regarding Kristine maneuver 3. Continue meclizine as ordered 4. MRI of the brain has been ordered to rule out cerebellar stroke 5. Dr. Arthur will assume neurologic coverage of this patient has been September 24, 2023 Time with Patient: Less than 30
--- NOTE | 2023-09-23 14:33 | PN ---
PROGRESS NOTE DATE OF SERVICE: 09/23/2023 SUBJECTIVE: This 57-year-old gentleman was admitted with vertigo, has nystagmus with preference to the right gaze, rotary nystagmus. The patient has history of MS also. I recommend MRI to rule out the possibility of MS lesions. No chest pain, no palpitation. OBJECTIVE: VITAL SIGNS: Pulse 67, blood pressure 116/70, respirations 16. CHEST: Clear to auscultation. ABDOMEN: Soft. NERVOUS SYSTEM: As mentioned. LABORATORY DATA: Noted. ASSESSMENT: 1. Vertigo for evaluation, still persistent. 2. Rule out MS acute exacerbation. 3. History of MS. 4. History of colonoscopy. RECOMMENDATIONS: Recommended to continue current management, continue symptomatic treatment. MRI, closely follow with Neurology. Repeat labs. Guarded prognosis. Further recommendations to follow. MMODL / IJN: [id number] /
[2023-09-24] MEDS: [UNRECOGNIZED DRUG - OTHER] PO SCH (06:36)
[2023-09-24 08:21] VITALS: RESP 16
[2023-09-24 11:14] LABS: Basophils # (A) 0.02 X 10*3/uL (0.00-0.10); Basophils % (A) 0.5 %; Eosinophils # (A) 0.17 X 10*3/uL (0.04-0.35); Eosinophils % (A) 4.5 %; HCT 43.8 % (39.6-50.0); HGB 14.6 g/dL (13.0-17.0); Lymphocytes # (A) 0.38 X 10*3/uL (0.90-5.00); Lymphocytes % (A) 10.1 %; MCH 29.2 pg (27.0-32.0); MCHC 33.3 g/dL (32.0-37.0); MCV 87.6 FL (80.0-97.0); Mean Platelet Volume 9.7 FL (9.5-12.2); NRBC Per 100 WBC 0 X 10*3/uL (0.00-0.01); Neutrophils # (A) 2.54 X 10*3/uL (1.80-7.70); Neutrophils % (A) 67.6 %; Platelet Count 253 X 10*3/uL (140-440); RDW 13.2 % (11.5-14.5); WBC 3.76 X 10*3/uL (4.50-10.00)
[2023-09-24 11:28] LABS: Blood Urea Nitrogen 15.7 mg/dL (9.0-27.0); Calcium 9.1 mg/dL (8.7-10.3); Chloride 105 mmol/L (96-109); Glucose 111 mg/dL (70-110); Potassium 4.3 mmol/L (3.5-5.5); Sodium 140 mmol/L (135-145)
--- NOTE | 2023-09-24 13:02 | MR ---
EXAMINATION TYPE: MR brain wo/w con DATE OF EXAM: 09/24/2023 11:27 AM CLINICAL INDICATION:Male, 57 years old with history of dizziness, concern for ms exacerbation; Herminia ADAMS, evaluate for MS exacerbation. COMPARISON: CT brain earlier today. TECHNIQUE: Multi planar, multi sequence imaging was performed through the brain including: T1, T2, In version recovery, susceptibility weighted imaging and gradient echo imaging and Diffusion weighted im aging. The patient was then given intravenous contrast and multi planar, T1 fat-saturation images wer e obtained. IV Contrast: 10 cc Gadavist FINDINGS: The pascual-white junctions, ventricular system, basal cisterns appear unremarkable. Diffusion-weighted imaging shows no evidence of restricted diffusion to suggest acute/subacute infarct. Intracranial ar terial flow voids are maintained. Midline structures show no abnormality. Scattered foci of high T2 s ignal intensity are seen within the periventricular and deep white matter. The susceptibility weighte d images do not reveal any evidence for micro-hemorrhage. After administration of gadolinium, no abno rmal enhancement is seen. The bone marrow signal is within normal limits. Paranasal sinuses and mastoid air cells: No significant paranasal sinus disease. Visualized orbits: Orbital contents are intact. IMPRESSION: 1. No evidence of intracranial mass, acute/subacute infarct, or abnormal enhancement. 2. Nonspecific white matter changes. With history of multiple sclerosis these likely represent whit e matter plaques of multiple sclerosis. No abnormal enhancement is seen to suggest an acute flareup.
[2023-09-24 14:27] VITALS: BP 128/81; TEMP 98.4
--- NOTE | 2023-09-24 14:41 | P.PN ---
Subjective Progress Note Date: 09/24/23 I am seeing the patient for the first time during this admission. Please refer to Dr. Fregoso's notes for further details. patient states that the he's been having dizziness and he feels dizziness occur mostly with movement but does resolve with resting. He has chronic tinnitus bilaterally. Denies any focal weakness numbness. On initial presentation he had nausea vomiting which resolved. He feels his dizziness is improving. Objective - Vital Signs Vital signs: Vital Signs Temp 98.4 F 09/24/23 14:15 Pulse 76 09/24/23 14:15 Resp 16 09/24/23 14:15 BP 128/81 09/24/23 14:15 Pulse Ox 95 09/24/23 14:15 FiO2 Intake & Output 09/23/23 09/24/23 09/24/23 18:59 06:59 18:59 Intake Total 118 Balance 118 Intake: Oral 118 Other: # Voids 4 1 4 # Bowel Movements 0 1 - Exam GENERAL: The patient is lying in bed and is not in acute distress. NEUROLOGICAL: Higher mental function: The patient is awake, alert, oriented to self, place and time. Patient is following commands. No aphasia and no neglect. Cranial nerves: The pupils are round, equal and reactive to light and accommodation. Visual sarabia are full to confrontation throughout. Extraocular movement is intact no nystagmus is noted. Facial sensation is normal to touch throughout. The facial strength is normal throughout. Hearing is normal bilaterally to hand rub. Tongue is midline and moved [id number]-mx-[id number] without any difficulty. No dysarthria is noted. Shoulder shrug is normal bilaterally. Motor: The strength is 5 over 5 throughout. Normal tone and bulk. Cerebellum: Normal finger to nose heel to singh bilaterally. Sensation: Sensation is normal to touch throughout. - Labs CBC & Chem 7: 09/24/23 06:24 09/24/23 06:24 Labs: Abnormal Lab Results - Last 24 Hours (Table) 09/24/23 09/24/23 Range/Units 06:24 06:24 WBC 3.76 L (4.50-10.00) X 10*3/uL Immature Gran # 0.05 H (0.00-0.04) X 10*3/uL Lymphocytes # 0.38 L (0.90-5.00) X 10*3/uL Glucose 111 H (70-110) mg/dL Assessment and Plan Assessment: 1. Recurrent benign paroxysmal positional vertigo, unlikely exacerbation of multiple sclerosis, unlikely cerebellar infarct---improving 2. History of multiple sclerosis 3. History of tinnitus bilaterally Plan: 1. Agree with meclizine 25mg tid and is on schedule. Recommend total of 7 days and after that PRN. 2. Physical therapy consultation regarding Kristine maneuver 3. MRI of the brain has been ordered to rule out cerebellar stroke 4. Recommend to follow-up with ENT as outpatient and recommend vestibular rehab therapy as outpatient. 5. Will defer rest of medical management to primary team and other specialist. If MRI Brain is negative then no further neurological work-up. The plan is discussed with patient and primary team N.P. Time with Patient: Less than 30
[2023-09-24 15:53] VITALS: PULSE 68
--- NOTE | 2023-09-28 11:21 | P.DS ---
Providers Date of admission: 09/22/23 05:30 Expected date of discharge: 09/24/23 Attending physician: James Mendiola Consults: 09/22/23 04:47 Consult Physician Urgent Consulting Provider: Juan Jose Hatfield Consult Reason/Comments: vertigo Do you want consulting provider notified?: Yes, Notify in am Primary care physician: Priyank Moreno Hospital Course: Final diagnosis Vertigo, persistent, likely BPPV Ruled out MS exacerbation History of multiple sclerosis Obesity with a BMI of 31.6 Prophylaxis DVT prophylaxis Full code Discharge disposition Patient is being discharged in a stable condition with guarded prognosis to home. Patient will follow-up with Dr. Moreno in the outpatient setting upon discharge. Patient is to continue with meclizine 3 times daily for the next few days and then as needed and recommend outpatient follow-up with his neurologist Dr. Bautista as scheduled. Patient to follow-up with the ENT outpatient as well. Total time taken is greater than 35 minutes. Hospital course This is a 57-year-old male who was recently admitted with dizziness and lightheadedness with difficulty in ambulation being closely monitored. Patient underwent neurological evaluation including MRI of the brain showing no abnormalities at this time. Patient continued to have persistent dizziness likely BPPV and reports some improvement on meclizine. Patient will continue with scheduled meclizine and then as needed and outpatient follow-up with his neurologist as well as ENT in the outpatient setting. Patient has been cleared by consultations. Please refer to neurology notes for further HPI. Currently no reports of chest pain, shortness of breath, or palpitations. Patient is afebrile. No reports of nausea or vomiting and patient is tolerating diet. Patient will be discharged home today. Physical exam: Gen: This is a 57-year-old male who is awake, alert and oriented x 3, well- developed, well-nourished, obese HEENT: Head is atraumatic, normocephalic. Pupils equal, round. Sclerae is anicteric. NECK: Supple. No JVD. No lymphadenopathy. No thyromegaly. LUNGS: Clear to auscultation. No wheezes or rhonchi. No intercostal retractions. HEART: Regular rate and rhythm. No murmur. ABDOMEN: Soft. Bowel sounds are present. No masses. No tenderness. EXTREMITIES: No pedal edema. No calf tenderness. NEUROLOGICAL: Patient is awake, alert and oriented x3. Cranial nerves 2 through 12 are grossly intact. Please refer to medication reconciliation sheet for a list of medications. The impression and plan of care has been dictated by Janis Trejo, Nurse Practitioner as directed. Dr. Santos MD I have performed a history and examination and MDM of this patient, discussed the same with the dictator, and agree with the dictator's assessment and plan as written ,documented as a scribe. Based on total visit time, I have performed more than 50% of the visit. Patient Condition at Discharge: Fair Plan - Discharge Summary Discharge Rx Participant: Yes New Discharge Prescriptions: New Meclizine [Antivert] 25 mg PO TID PRN #60 tab PRN Reason: Vertigo Continue tiZANidine [Zanaflex] 4 mg PO BID PRN PRN Reason: Muscle Spasm Losartan [Cozaar] 50 mg PO DAILY@1800 Ozanimod Hydrochloride [Zeposia] 0.92 mg PO DAILY@0700 Gabapentin 300 mg PO TID Discharge Medication List Gabapentin 300 mg PO TID 09/22/23 [History] Losartan [Cozaar] 50 mg PO DAILY@1800 09/22/23 [History] Ozanimod Hydrochloride [Zeposia] 0.92 mg PO DAILY@0700 09/22/23 [History] tiZANidine [Zanaflex] 4 mg PO BID PRN 09/22/23 [History] Meclizine [Antivert] 25 mg PO TID PRN #60 tab 09/24/23 [Rx] Follow up Appointment(s)/Referral(s): Priyank Moreno MD [Primary Care Provider] - 1-2 days (please call to make an appointment ) Andrew Bautista MD [Medical Doctor] - 1 Week ( office will call you to set up an appointment) Jacques Lewis MD [STAFF PHYSICIAN] - 1 Week (please call for an appointment ) Patient Instructions/Handouts: Vertigo (DC) Activity/Diet/Wound Care/Special Instructions: activity limited until follow up Follow-up with neurology outpatient Continue taking medications as prescribed Recommend meclizine 25 mg 3 times daily for the next few days and then use as needed for dizziness Follow-up with ENT outpatient Follow-up primary care provider on discharge Discharge Disposition: HOME SELF-CARE
== END 2023-09-24 15:58 | disposition home or self-care (01) ==
LOC: EC 01:21 → 6NMEDSUR 05:30
PROVIDERS: ADMIT Hospitalist; ATTEND Hospitalist
DX: H81.10 Benign paroxysmal vertigo, unspecified ear (principal); G35 Multiple sclerosis; Z87.891 Personal history of nicotine dependence; Z79.899 Other long term (current) drug therapy
CPT/HCPCS: 96361; 96374; 96375; 99285; 36415; 93005; 97161; 80053; 80048 ×2; 83605; 84484; 85025 ×3; 70450; 70553; G0378 ×3; J1200; J2765; J2405; A9585